=== PATIENT | female | born 1940 | race Caucasian/White ===

== ENCOUNTER 2019-12-04 06:51 | Observation (INO) | payer MEDICARE ==
[~2019-12-04] VITALS: Ht 157.5 cm; Wt 92.0 kg
[~2019-12-04 06:51] MED LIST: TRANEXAMIC ACID 100 MG/ML, 10ML ONE
[2019-12-04] MEDS ORDERED: LACTATED RINGERS 1,000 ML IV ONE (07:26)
[2019-12-04] MEDS ORDERED: CHLORHEXIDINE 15 ML UDC MM STA (07:26)
[2019-12-04 07:30] VITALS: BP 115/82
[2019-12-04] MEDS ORDERED: FURO20TA3 PO (07:45)
[2019-12-04] MEDS ORDERED: POTA20TA14 PO (07:45)
[2019-12-04] MEDS ORDERED: LISI40TA PO (07:45)
[2019-12-04] MEDS ORDERED: ATOR40TA PO (07:45)
[2019-12-04] MEDS ORDERED: DICL100T PO (07:45)
[2019-12-04] MEDS ORDERED: ERGO500017 PO (07:45)
[2019-12-04] MEDS ORDERED: TRAZ-175 PO (07:45)
[2019-12-04] MEDS ORDERED: OMEP-110 PO (07:45)
[2019-12-04] MEDS ORDERED: FENTANYL PF 100 MCG/2ML ONE ×3 (07:59→11:01)
[2019-12-04] MEDS ORDERED: MIDAZOLAM 1 MG/ML, 2ML ONE ×2 (07:59→11:01)
[2019-12-04 08:10] LABS: ALANINE AMINOTRANSFERASE 15 U/L (12-78); ALBUMIN 3.7 g/dL (3.4-5.0); ANION GAP 7 mmol/L (5-15); CALCIUM 9.6 mg/dL (8.5-10.1); CHLORIDE 111 mmol/L (98-107); CREATININE 1.17 mg/dL (0.55-1.02)
[2019-12-04 08:13] LABS: ALKALINE PHOSPHATASE 72 U/L (45-117); BILIRUBIN,TOTAL 0.5 mg/dL (0.2-1.0); TOTAL PROTEIN 7.3 g/dL (6.4-8.2)
[2019-12-04] MEDS: D5%-0.45% NACL 1,000 ML IV SCH ×2 (08:24→18:24)
[2019-12-04] MEDS ORDERED: TRAZODONE 100MG TABLET PO PRN (08:30)
[2019-12-04] MEDS: ACETAMINOPHEN 500 MG TABLET PO SCH ×3 (08:30→23:56)
[2019-12-04] MEDS ORDERED: ACETAMINOPHEN 325 MG TABLET PO PRN ×2 (08:30→09:30)
[2019-12-04] MEDS ORDERED: ERGOCALCIFEROL 50,000 UNIT CAPSULE PO SCH (08:30)
[2019-12-04] MEDS ORDERED: ONDANSETRON 4 MG TABLET PO PRN (08:30)
[2019-12-04] MEDS ORDERED: SENNA/DOCUSATE TABLET PO PRN (08:30)
[2019-12-04] MEDS ORDERED: ACETAMINOPHEN 650 MG/20.3 ML UDC PO PRN (08:30)
[2019-12-04] MEDS ORDERED: BUPIVACAINE/PF 0.5% ONE ×2 (08:52→09:38)
[2019-12-04] MEDS ORDERED: EPINEPHRINE 1 MG/ML, 1ML ONE (08:52)
[2019-12-04] MEDS: LISINOPRIL 40 MG TABLET PO SCH (09:00)
[2019-12-04] MEDS: FUROSEMIDE 20 MG TABLET PO SCH ×2 (09:00→20:44)
[2019-12-04] MEDS: POTASSIUM CHLORIDE 20 MEQ TAB.ER.PRT PO SCH (09:00)
[2019-12-04] MEDS: DOCUSATE 100 MG CAPSULE PO SCH ×2 (09:00→20:44)
[2019-12-04] MEDS ORDERED: FENTANYL PF 250 MCG/5ML ONE (09:24)
[2019-12-04] MEDS ORDERED: PROMETHAZINE 25 MG/ML, 1ML IVPush PRN (09:30)
[2019-12-04] MEDS ORDERED: MEPERIDINE/PF 25MG/0.5ML IVPush PRN (09:30)
[2019-12-04] MEDS ORDERED: ALBUTEROL SULFATE 2.5 MG/3 ML NPPB PRN (09:30)
[2019-12-04] MEDS ORDERED: hydrALAzine 20 MG/ML, 1ML IV PRN (09:30)
[2019-12-04] MEDS ORDERED: LABETALOL 5MG/ML, 20ML IV PRN (09:30)
[2019-12-04] MEDS ORDERED: MIDAZOLAM 1 MG/ML, 2ML IV PRN (09:30)
[2019-12-04] MEDS ORDERED: ONDANSETRON 2MG/ML, 2ML ONE (09:38)
[2019-12-04] MEDS ORDERED: CEFAZOLIN 1,000 MG ONE (09:38)
[2019-12-04] MEDS ORDERED: LIDOCAINE-MPF 2% ,5ML ONE ×2 (09:38)
[2019-12-04] MEDS ORDERED: PROPOFOL 10 MG/ML, 20ML ONE (09:38)
[2019-12-04] MEDS ORDERED: DEXAMETHASONE 4 MG/ML, 1ML ONE (09:38)
[2019-12-04] MEDS ORDERED: OMEPRAZOLE 20 MG CAPSULE.DR PO PRN (10:00)
[2019-12-04] MEDS: FENTANYL PF 100 MCG/2ML IV PRN ×5 (10:30→11:28)
[2019-12-04] MEDS ORDERED: OXYcodone 5 MG/5 ML ORAL.SOL UDC ONE (10:46)
[2019-12-04] MEDS: OXYcodone 5 MG/5 ML ORAL.SOL UDC PO PRN ×2 (10:50→13:32)
[2019-12-04] MEDS ORDERED: HYDROmorphone 1 MG/ML, 1ML INJ ONE (10:51)
[2019-12-04] MEDS: HYDROmorphone 1 MG/ML, 1ML INJ IVPush PRN ×2 (10:55→11:28)
[2019-12-04 13:15] VITALS: BP 114/49
[2019-12-04] MEDS: MORPHINE SULFATE 4 MG/ML, 1ML IVPush PRN (16:17)
[2019-12-04] MEDS: OXYcodone IR 5MG TABLET PO PRN ×2 (17:53→20:47)
[2019-12-04 18:38] VITALS: BP 130/77
[2019-12-04] MEDS: ATORVASTATIN 20 MG TABLET PO SCH (20:44)
[2019-12-04] MEDS: FUROSEMIDE 40 MG TABLET PO SCH (21:00)
[2019-12-05] MEDS: OXYcodone IR 5MG TABLET PO PRN ×6 (00:41→21:49)
[2019-12-05 01:03] VITALS: BP 102/66
[2019-12-05] MEDS: MORPHINE SULFATE 4 MG/ML, 1ML IVPush PRN ×2 (03:16→08:59)
[2019-12-05] MEDS: D5%-0.45% NACL 1,000 ML IV SCH ×3 (04:33→23:56)
[2019-12-05] MEDS: ACETAMINOPHEN 500 MG TABLET PO SCH ×3 (05:39→17:49)
[2019-12-05 06:29] VITALS: BP 117/72
[2019-12-05] MEDS: DOCUSATE 100 MG CAPSULE PO SCH ×2 (08:59→20:27)
[2019-12-05] MEDS: POTASSIUM CHLORIDE 20 MEQ TAB.ER.PRT PO SCH (08:59)
[2019-12-05] MEDS: LISINOPRIL 40 MG TABLET PO SCH (08:59)
[2019-12-05] MEDS: FUROSEMIDE 20 MG TABLET PO SCH ×2 (08:59→20:28)
[2019-12-05] MEDS: FUROSEMIDE 40 MG TABLET PO SCH ×2 (09:00→20:27)
[2019-12-05] MEDS: KETOROLAC 30 MG/1 ML IVPush SCH ×2 (13:37→21:48)
[2019-12-05 13:42] VITALS: BP 97/64
[2019-12-05 19:07] VITALS: BP 102/66
[2019-12-05] MEDS: ATORVASTATIN 20 MG TABLET PO SCH (20:27)
[2019-12-06] MEDS: ACETAMINOPHEN 500 MG TABLET PO SCH ×3 (00:02→12:00)
[2019-12-06 01:07] VITALS: BP 90/57
[2019-12-06] MEDS: OXYcodone IR 5MG TABLET PO PRN ×3 (01:59→10:12)
[2019-12-06] MEDS: KETOROLAC 30 MG/1 ML IVPush SCH (06:10)
[2019-12-06 07:23] VITALS: BP 93/65
[2019-12-06] MEDS: FUROSEMIDE 40 MG TABLET PO SCH (09:00)
[2019-12-06] MEDS: LISINOPRIL 40 MG TABLET PO SCH (09:00)
[2019-12-06] MEDS: FUROSEMIDE 20 MG TABLET PO SCH (09:00)
[2019-12-06] MEDS: DOCUSATE 100 MG CAPSULE PO SCH (10:12)
[2019-12-06] MEDS: POTASSIUM CHLORIDE 20 MEQ TAB.ER.PRT PO SCH (10:13)
[2019-12-06] MEDS: D5%-0.45% NACL 1,000 ML IV SCH (10:16)
[2019-12-06 13:02] VITALS: BP 107/78
== END 2019-12-06 13:30 | disposition home or self-care (01) ==
LOC: OUT 06:51 → ORIP 08:24 → 4NE 12:08
PROVIDERS: ADMIT Orthopaedic Surgery; ATTEND Orthopaedic Surgery
DX: M17.11 Unilateral primary osteoarthritis, right knee (principal); Z20.828 Contact with and (suspected) exposure to other viral communicable diseases; M21.169 Varus deformity, not elsewhere classified, unspecified knee; I10 Essential (primary) hypertension; K21.9 Gastro-esophageal reflux disease without esophagitis; E03.9 Hypothyroidism, unspecified; E78.5 Hyperlipidemia, unspecified; E66.9 Obesity, unspecified; G47.33 Obstructive sleep apnea (adult) (pediatric); Z88.0 Allergy status to penicillin; Z79.899 Other long term (current) drug therapy; Z87.891 Personal history of nicotine dependence
CPT/HCPCS: 27447; 36415; 73560; 80053; 87081; 87635; 93005; 96374; 96375; 96376; 97110; 97162; 97530; C1713; C1776; G0378; J0171; J0690; J1100; J1170; J1885; J2250; J2270; J2405; J2704; J3010; J3490; J7120; S0020